=== PATIENT | female | born 1995 | race Caucasian/White ===

== ENCOUNTER 2022-05-04 15:47 | Day surgery (SDC) | payer OTHER ==
[2022-05-04 16:20] VITALS: BMI 37.5
== END 2022-05-04 18:16 | disposition home or self-care (01) ==
LOC: CSHLD/OP 15:47
PROVIDERS: ATTEND Family Medicine
DX: O36.8130 Decreased fetal movements, third trimester, not applicable or unspecified (principal); Z36.83 Encounter for fetal screening for congenital cardiac abnormalities; Z3A.37 37 weeks gestation of pregnancy
CPT/HCPCS: 59025; 76815; 76819; 99282

== ENCOUNTER 2022-06-12 05:30 | Inpatient (IN) | payer OTHER ==
[2022-06-12] MEDS ORDERED: Ondansetron PF 4 MG/2 ML Vial IVP PRN (16:08)
[2022-06-12] MEDS ORDERED: Acetaminophen 500 MG TAB PO PRN (16:08)
[2022-06-12] MEDS ORDERED: Methylergonovine 0.2 MG/ML VIAL IM PRN (16:08)
[2022-06-12] MEDS ORDERED: Promethazine HCl 25 MG/ML VIAL IM PRN (16:08)
[2022-06-12] MEDS ORDERED: Carboprost 250 MCG/ML AMP IM PRN (16:08)
[2022-06-12] MEDS ORDERED: Ibuprofen 800 MG TAB PO PRN (16:08)
[2022-06-12] MEDS ORDERED: hydrALAZINE 20 MG/ML VIAL SLOW IVP PRN (16:08)
[2022-06-12] MEDS ORDERED: Butorphanol Tartrate 1 MG/ML VIAL SLOW IVP PRN (16:08)
[2022-06-12] MEDS ORDERED: Lidocaine 1% (PF) 30 ML VIAL SC PRN (16:08)
[2022-06-12] MEDS ORDERED: Diphenoxylate HCl/Atropine Tablet PO PRN (16:08)
[2022-06-12] MEDS ORDERED: HYDROcodone/Acetaminophen 5/325 mg Tablet PO PRN (16:08)
[2022-06-12] MEDS ORDERED: Misoprostol 200 MCG TAB PR PRN (16:08)
[2022-06-12] MEDS ORDERED: Penicillin G Potassium 5 MILL.UNITS in Sodium Chloride 0.9% 100 ML IVPB SCH (16:15)
[2022-06-12] MEDS ORDERED: Lactated Ringer's 1,000 ML IV SCH (16:15)
[2022-06-12] MEDS ORDERED: NS w/ Oxytocin 30 units 500 ML IV SCH (16:15)
[2022-06-12 17:44] LABS: Hemoglobin 11.4 g/dL (12.0-15.5); Mean Corpuscular HGB CONC 32.9 g/dL (32.0-36.0); Mean Corpuscular Hemoglobin 25.6 pg (27.0-33.0); Mean Corpuscular Volume 77.8 fl (81.6-98.3); Mean Platelet Volume 12.8 fl (7.4-10.4); Platelet Count 201 10x3/uL (150-450); Red Blood Cell (RBC) Count 4.45 10x6/uL (3.90-5.03); White Blood Cell (WBC) Count 12.3 10x3/uL (3.5-10.5)
[2022-06-12 18:03] VITALS: BMI 41.3
[2022-06-12 18:09] LABS: SARS-CoV-2 NAA Rapid Test Not Detected (NotDetected)
[2022-06-12 18:17] LABS: HBSAg Index 0.14 S/CO (0-0.99); Hep B Surf Ag Non-Reactive S/CO (NonReactive)
[2022-06-12 18:18] LABS: Syphilis Antibody Nonreactive (Nonreactive); Syphilis Antibody Index 0.05 S/CO (<1.00 Non-Reactive)
[2022-06-12] MEDS: Penicillin G 2.5 MILL.units 2.5 MILL.UNITS in Premix Bag 1 BAG IVPB SCH (21:24)
[2022-06-12] MEDS ORDERED: Fentanyl 2 mcg/Bup 0.1% Cadd 100 ML ONE (21:31)
[2022-06-13] MEDS: Penicillin G 2.5 MILL.units 2.5 MILL.UNITS in Premix Bag 1 BAG IVPB SCH ×4 (01:24→19:03)
[2022-06-13] MEDS ORDERED: Fentanyl 2 mcg/Bup 0.1% Cadd 100 ML ONE (04:09)
[2022-06-13] MEDS ORDERED: Ondansetron HCl/PF 4 MG/2 ML Vial IVP PRN ×2 (05:51→12:09)
[2022-06-13] MEDS ORDERED: Fentanyl 100 MCG/2 ML VIAL SLOW IVP PRN ×2 (05:51→12:09)
[2022-06-13] MEDS ORDERED: Meperidine HCl/PF 25 MG/ML VIAL SLOW IVP PRN ×2 (05:51→12:09)
[2022-06-13] MEDS ORDERED: Ketorolac Tromethamine 30 MG/ML VIAL IVP SCH ×2 (06:00→12:15)
[2022-06-13] MEDS ORDERED: Bicitra 30 ML UDCUP PO PRN (10:27)
[2022-06-13] MEDS ORDERED: Azithromycin 500 MG VIAL ONE (10:27)
[2022-06-13] MEDS ORDERED: Famotidine/PF 20 mg/2ml Vial SLOW IVP PRN (10:27)
[2022-06-13] MEDS ORDERED: CEFAZOLIN 2 GM VIAL ONE (10:27)
[2022-06-13] MEDS ORDERED: Famotidine/PF 20 mg/2ml Vial ONE (10:28)
[2022-06-13] MEDS ORDERED: Azithromycin 500 MG in Sodium Chloride 0.9% 250 ML 250 ML IVPB SCH (10:30)
[2022-06-13] MEDS ORDERED: CEFAZOLIN 2 GM in Sodium Chloride 0.9% 100 ML IVPB SCH (10:30)
[2022-06-13] MEDS ORDERED: Fentanyl 100 MCG/2 ML VIAL ONE (10:44)
[2022-06-13] MEDS ORDERED: Morphine PF 10 MG/10 ML VIAL ONE (10:44)
[2022-06-13] MEDS ORDERED: PHENYLEPHRINE-NS 100 MCG/ML 10 ML SYRINGE ONE (10:44)
[2022-06-13] MEDS ORDERED: Promethazine HCl 25 MG/ML VIAL ONE (11:08)
[2022-06-13] MEDS ORDERED: Ondansetron PF 4 MG/2 ML Vial ONE (11:10)
[2022-06-13] MEDS ORDERED: Dexamethasone 4 mg/ml Vial ONE (11:10)
[2022-06-13] MEDS ORDERED: Naloxone HCl 0.4 mg/ml Vial IVP PRN ×2 (12:09)
[2022-06-13] MEDS ORDERED: Promethazine HCl 25 MG/ML VIAL IM PRN ×2 (12:09→15:44)
[2022-06-13] MEDS ORDERED: Promethazine HCl 25 MG SUPP PR PRN (12:09)
[2022-06-13] MEDS ORDERED: Naloxone HCl 0.4 mg/ml Vial IV PRN (12:09)
[2022-06-13] MEDS ORDERED: diphenhydrAMINE 50 MG/ML VIAL IVP PRN (12:09)
[2022-06-13] MEDS ORDERED: Moisturizing Cream (Eucerin) 113 GM JAR TOP PRN (12:09)
[2022-06-13] MEDS ORDERED: Ondansetron PF 4 MG/2 ML Vial IVP PRN ×2 (12:09→15:44)
[2022-06-13] MEDS ORDERED: Communication Order-Pharmacy FS SCH (12:15)
[2022-06-13] MEDS ORDERED: hydrALAZINE 20 MG/ML VIAL SLOW IVP PRN (15:44)
[2022-06-13] MEDS ORDERED: diphenhydrAMINE 25 MG CAP PO PRN (15:44)
[2022-06-13] MEDS ORDERED: Bisacodyl 10 MG SUPP PR PRN (15:44)
[2022-06-13] MEDS ORDERED: Boostrix 0.5 ML (Tdap) VIAL (>/=7 yrs of age) IM ONE (15:44)
[2022-06-13] MEDS ORDERED: NS w/ Oxytocin 30 units 500 ML IV SCH (15:44)
[2022-06-13] MEDS ORDERED: Lanolin Ointment 7 GM TUBE TOP PRN (15:44)
[2022-06-13] MEDS: Ketorolac Tromethamine 30 MG/ML VIAL IVP SCH ×2 (17:50→23:58)
[2022-06-13] MEDS: Misoprostol 100 MCG TAB VAG SCH (19:03)
[2022-06-13] MEDS: Docusate 100 MG CAP PO SCH (22:10)
[2022-06-13] MEDS: Ferrous Sulfate 325 MG TAB PO SCH (22:10)
[2022-06-14] MEDS ORDERED: Meperidine HCl/PF 25 MG/ML VIAL IM PRN (00:15)
[2022-06-14] MEDS: HYDROcodone/Acetaminophen 5/325 mg Tablet PO PRN ×5 (04:21→21:25)
[2022-06-14 04:55] LABS: Hemoglobin 9.4 g/dL (12.0-15.5); Mean Corpuscular HGB CONC 33.5 g/dL (32.0-36.0); Mean Corpuscular Hemoglobin 26.3 pg (27.0-33.0); Mean Corpuscular Volume 78.7 fl (81.6-98.3); Platelet Count 162 10x3/uL (150-450); RBC Distribution Width 15.3 % (11.5-14.5); Red Blood Cell (RBC) Count 3.57 10x6/uL (3.90-5.03); White Blood Cell (WBC) Count 15.4 10x3/uL (3.5-10.5)
[2022-06-14] MEDS: Ketorolac Tromethamine 30 MG/ML VIAL IVP SCH ×2 (06:03→11:46)
[2022-06-14] MEDS: Ferrous Sulfate 325 MG TAB PO SCH ×2 (08:21→21:24)
[2022-06-14] MEDS: Docusate 100 MG CAP PO SCH ×2 (08:21→21:24)
[2022-06-14] MEDS: Prenatal Vitamin 1 TAB PO SCH (08:21)
[2022-06-14] MEDS: Ibuprofen 800 MG TAB PO SCH ×2 (11:34→21:24)
[2022-06-14] MEDS: Simethicone Chewable 80 MG TAB PO PRN (21:25)
[2022-06-15] MEDS: HYDROcodone/Acetaminophen 5/325 mg Tablet PO PRN ×5 (02:30→18:58)
[2022-06-15] MEDS: Simethicone Chewable 80 MG TAB PO PRN ×2 (02:30→14:36)
[2022-06-15] MEDS: Ibuprofen 800 MG TAB PO SCH ×3 (05:28→21:53)
[2022-06-15] MEDS: Prenatal Vitamin 1 TAB PO SCH (07:55)
[2022-06-15] MEDS: Ferrous Sulfate 325 MG TAB PO SCH ×2 (07:55→21:52)
[2022-06-15] MEDS: Docusate 100 MG CAP PO SCH ×2 (07:55→21:53)
[2022-06-16] MEDS: HYDROcodone/Acetaminophen 5/325 mg Tablet PO PRN ×3 (00:12→11:29)
[2022-06-16] MEDS: Ibuprofen 800 MG TAB PO SCH ×2 (04:57→14:04)
[2022-06-16] MEDS: Docusate 100 MG CAP PO SCH (07:51)
[2022-06-16] MEDS: Prenatal Vitamin 1 TAB PO SCH (07:51)
[2022-06-16] MEDS: Ferrous Sulfate 325 MG TAB PO SCH (07:51)
[2022-06-16 07:52] VITALS: BP 121/73; TEMP 97.6
== END 2022-06-16 15:25 | disposition home or self-care (01) | DRG 788 ==
LOC: CSHLD 13:41 → CSHPP 06-13 15:15
PROVIDERS: ADMIT Family Medicine; ATTEND Family Medicine
PROC: 10D00Z1 Extraction of Products of Conception, Low, Open Approach (ICD-10-PCS; principal; 2022-06-13)
PROC: 3E0334Z Introduction of Serum, Toxoid and Vaccine into Peripheral Vein, Percutaneous Approach (ICD-10-PCS; 2022-06-13)
PROC: 10907ZC Drainage of Amniotic Fluid, Therapeutic from Products of Conception, Via Natural or Artificial Opening (ICD-10-PCS; 2022-06-13)
PROC: 10H07YZ Insertion of Other Device into Products of Conception, Via Natural or Artificial Opening (ICD-10-PCS; 2022-06-13)
DX: O48.0 Post-term pregnancy (principal); O26.893 Other specified pregnancy related conditions, third trimester; Z67.11 Type A blood, Rh negative; Z20.822 Contact with and (suspected) exposure to COVID-19; O76 Abnormality in fetal heart rate and rhythm complicating labor and delivery; O99.824 Streptococcus B carrier state complicating childbirth; Z3A.42 42 weeks gestation of pregnancy; Z37.0 Single live birth; O77.0 Labor and delivery complicated by meconium in amniotic fluid
CPT/HCPCS: 36415; 51702; 85027; 85461; 86780; 86850; 86900; 86901; 87340; 90384; 96372; 99285; J0456; J1100; J1200; J1885; J2274; J2405; J2540; J2550; J2590; J3010; J3490; J7050; S0028; U0002